=== PATIENT | male | born 1935 | race Caucasian/White ===

== ENCOUNTER 2017-03-19 07:26 | Day surgery (SDC) | payer MEDICARE, BC ==
[~2017-03-19] VITALS: Ht 180.3 cm; Wt 81.0 kg
[~2017-03-19 07:26] MED LIST: Amitriptyline H10 MG PO; METO25ER; WARF3; [UNRECOGNIZED DRUG - REMARK]
[2017-10-16] MEDS ORDERED: METO100ER PO (11:20)
[2017-10-16] MEDS ORDERED: WARF3 PO (11:21)
[2017-10-16] MEDS ORDERED: CALCA400CH (11:22)
[2017-10-16] MEDS ORDERED: WARF4 PO (11:22)
[2017-10-16] MEDS ORDERED: Vitamin D400 UNI2 PO (11:24)
[2017-11-24] MEDS ORDERED: DOXY100 PO (01:03)
== END 2017-03-19 10:05 | disposition home or self-care (01) ==
LOC: ORSCSDS 07:26
PROVIDERS: Internal Medicine Gastroenterology
PROC: 0DBL8ZX Excision of Transverse Colon, Via Natural or Artificial Opening Endoscopic, Diagnostic (ICD-10-PCS; principal; 2017-03-19 08:45)
PROC: 0DBH8ZX Excision of Cecum, Via Natural or Artificial Opening Endoscopic, Diagnostic (ICD-10-PCS; principal; 2017-03-19 08:45)
DX: Z86.010 Personal history of colon polyps (principal); D12.0 Benign neoplasm of cecum; D12.3 Benign neoplasm of transverse colon; K64.8 Other hemorrhoids; I10 Essential (primary) hypertension; I48.91 Unspecified atrial fibrillation; Z79.01 Long term (current) use of anticoagulants; Z79.899 Other long term (current) drug therapy; Z87.891 Personal history of nicotine dependence
CPT/HCPCS: 88305

== ENCOUNTER → 2017-03-27 | Outpatient (CLI) | payer MEDICARE, BC ==
[~2017-03-27] MED LIST changes: +CALCA400CH; +DOXY100 PO; +METO100ER PO; +Vitamin D400 UNI2 PO; +WARF3 PO; +WARF4 PO
== END | disposition home or self-care (01) ==
LOC: LAB SHORT 10:06 → PLD 10:06
DX: D22.61 Melanocytic nevi of right upper limb, including shoulder (principal)
CPT/HCPCS: 88305

== ENCOUNTER → 2017-09-04 | Outpatient (CLI) | payer MEDICARE, BC ==
[~2017-09-04] MED LIST changes: -CALCA400CH; -DOXY100 PO; -METO100ER PO; -Vitamin D400 UNI2 PO; -WARF3 PO; -WARF4 PO
== END ==
LOC: PLD 11:07 → LAB SHORT 11:07
DX: C44.622 Squamous cell carcinoma of skin of right upper limb, including shoulder (principal)
CPT/HCPCS: 88305

== ENCOUNTER 2017-10-22 06:44 | Day surgery (SDC) | payer MEDICARE, BC ==
[~2017-10-22] VITALS: Ht 180.3 cm; Wt 81.1 kg
[~2017-10-22 06:44] MED LIST changes: +CALCA400CH; +METO100ER PO; +Vitamin D400 UNI2 PO; +WARF3 PO; +WARF4 PO
== END 2017-10-22 09:03 | disposition home or self-care (01) ==
LOC: ORSCSDS 06:44
PROVIDERS: Internal Medicine Gastroenterology
PROC: 0DJD8ZZ Inspection of Lower Intestinal Tract, Via Natural or Artificial Opening Endoscopic (ICD-10-PCS; principal; 2017-10-22 08:00)
DX: Z12.11 Encounter for screening for malignant neoplasm of colon (principal); Z86.010 Personal history of colon polyps; K64.8 Other hemorrhoids; I48.91 Unspecified atrial fibrillation; I10 Essential (primary) hypertension; Z87.891 Personal history of nicotine dependence; Z79.01 Long term (current) use of anticoagulants; Z79.899 Other long term (current) drug therapy
CPT/HCPCS: J0330; J1980; J2405; J7120

== ENCOUNTER 2019-05-20 06:35 | Day surgery (SDC) | payer MEDICARE, BC ==
[~2019-05-20] VITALS: Ht 180.3 cm; Wt 84.4 kg
[~2019-05-20 06:35] MED LIST changes: +DOXY100 PO
--- NOTE | 2019-05-20 07:11 | NUR ---
05/20/19 0711 Kelly Naylor N 1 IV ATTEMPT LEFT FA BY [place]. 1 IV ATTEMPT LEFT FA BY KIMANI. SUCCESSFUL IV PLACED IN RIGHT WRIST BY KIMANI.
== END 2019-05-20 08:34 | disposition home or self-care (01) ==
LOC: ORSCSDS 06:35
PROVIDERS: Ophthalmology
PROC: 08RJ3JZ Replacement of Right Lens with Synthetic Substitute, Percutaneous Approach (ICD-10-PCS; principal; 2019-05-20 08:00)
DX: H25.11 Age-related nuclear cataract, right eye (principal); I10 Essential (primary) hypertension; Z79.899 Other long term (current) drug therapy
CPT/HCPCS: J2001; J2250; J3010; J3301; J7040; V2632

== ENCOUNTER → 2020-09-26 | Outpatient (CLI) | payer MEDICARE, BC | END | disposition home or self-care (01) | LOC: LAB 15:24 → LAB SHORT 15:24 | DX: D48.5 Neoplasm of uncertain behavior of skin (principal) | CPT/HCPCS: 88305 ==

== ENCOUNTER 2021-11-03 00:16 | Day surgery (SDC) | payer MEDICARE, BC | END 2021-11-03 09:31 | disposition home or self-care (01) | LOC: ATC 00:16 | DX: I95.1 Orthostatic hypotension (principal); I11.0 Hypertensive heart disease with heart failure; I50.21 Acute systolic (congestive) heart failure; J44.9 Chronic obstructive pulmonary disease, unspecified; I48.91 Unspecified atrial fibrillation; F17.210 Nicotine dependence, cigarettes, uncomplicated; Z79.01 Long term (current) use of anticoagulants; Z79.899 Other long term (current) drug therapy; Z86.73 Personal history of transient ischemic attack (TIA), and cerebral infarction without residual deficits | CPT/HCPCS: 80400; 82533; 96374; J0834 ==

== ENCOUNTER → 2022-09-27 | Outpatient (CLI) | payer MEDICARE, BC ==
[2022-09-27 12:10] LABS: International Normalized Ratio 1.98
[2022-09-27 13:15] LABS: Bun/Creatinine Ratio 24.1 (12.0-20.0); Calcium, Blood 9.6 mg/dL (8.5-10.1); Creatinine, Blood 1.33 mg/dL (0.60-1.20)
== END | disposition home or self-care (01) ==
LOC: LAB 09:20 → LAB SHORT 09:20
PROVIDERS: Internal Medicine
DX: Z79.01 Long term (current) use of anticoagulants (principal); Z51.81 Encounter for therapeutic drug level monitoring; I13.0 Hypertensive heart and chronic kidney disease with heart failure and stage 1 through stage 4 chronic kidney disease, or unspecified chronic kidney disease; I50.23 Acute on chronic systolic (congestive) heart failure; N18.9 Chronic kidney disease, unspecified; I48.91 Unspecified atrial fibrillation; R60.1 Generalized edema
CPT/HCPCS: 80048; 83880; 85610

== ENCOUNTER 2023-10-07 11:33 | Emergency (ER) | payer MEDICARE, BC ==
[~2023-10-07] VITALS: Ht 210.8 cm; Wt 70.3 kg
[~2023-10-07 11:33] MED LIST changes: +1/2 NS 250ml250 ML; +ELIQUIS5 M3 PO; +FLUTICASONE-SA1 EAC9 INH; +K-TAB ER20 ME1 PO; +METO2.5 PO; +PRESERVISION A1 EAC2 PO; +SOAANZ20 M3 PO; +SPIRONOLACTONE25 MG PO; +VITAMIN D31000 UNI1 PO
[2023-10-07 11:49] VITALS: BP 137/83
[2023-10-07] MEDS ORDERED: NS 500 ML IV SCH (11:55)
[2023-10-07 11:57] LABS: BASOPHILS ABSOLUTE AUTO 0.03 K/mm3 (0.00-0.23); BASOPHILS PERCENT AUTO 0 % (0-2); EOSINOPHILS ABSOLUTE AUTO 0.04 K/mm3 (0.00-0.68); EOSINOPHILS PERCENT AUTO 1 % (0-6); Hematocrit 29.7 % (37.0-53.0); Hemoglobin 9.9 g/dL (13.5-17.5); IMMATURE GRAN ABSOLUTE AUTO 0.03 K/mm3 (0.00-0.10); IMMATURE GRAN PERCENT AUTO 0 % (0-1); LYMPHOCYTES ABSOLUTE AUTO 0.49 K/mm3 (0.84-5.20); LYMPHOCYTES PERCENT AUTO 6 % (21-46); MONOCYTES PERCENT AUTO 6 % (4-13); Mean Corpuscular HGB 29.4 pg (26.0-34.0); Mean Corpuscular HGB Conc 33.3 g/dL (31.5-36.5); Mean Corpuscular Volume 88 fL (80-100); Mean Platelet Volume 9.9 fL (9.1-12.4); NEUTROPHILS ABSOLUTE AUTO 6.79 K/mm3 (1.96-9.15); NEUTROPHILS PERCENT AUTO 86 % (41-73); Platelet Count 261 K/mm3 (150-400); RDW Coefficient Variation 14.6 % (11.7-14.2); RDW Standard Deviation 47.2 fL (35.1-46.3); Red Blood Cell Count 3.37 M/mm3 (4.30-5.90); White Blood Cell Count 7.88 K/mm3 (4.00-11.30)
[2023-10-07 12:14] LABS: Albumin, Blood 3.1 g/dL (3.4-5.0); Albumin/Globulin Ratio 0.6 (0.8-1.8); Bilirubin, Total 2.1 mg/dL (0.1-1.0); Bun/Creatinine Ratio 22.8 (12.0-20.0); Calcium, Blood 8.6 mg/dL (8.5-10.1); Creatinine, Blood 0.92 mg/dL (0.60-1.20); Globulin, Blood 4.9 g/dL (2.2-4.0); Potassium, Blood 4.2 mmol/L (3.5-5.5)
[2023-10-07 12:48] LABS: Source, Urine Clean Catch
[2023-10-07 12:48] LABS: BASOPHILS PERCENT MAN 0 % (0-2); EOSINOPHILS PERCENT MAN 0 % (0-6); LYMPHOCYTES ABSOLUTE MAN 0.15 K/mm3 (0.84-5.20); LYMPHOCYTES PERCENT MAN 2 % (21-46); MONOCYTES ABSOLUTE MAN 0.31 K/mm3 (0.16-1.47); MONOCYTES PERCENT MAN 4 % (4-13); SEG NEUTROPHILS PERCENT MAN 94 % (41-73); TOTAL CELLS COUNTED 100
[2023-10-07 12:53] LABS: Appearance, Urine Clear (Clear); Bilirubin, Urine Neg (Neg); Blood, Urine 1+ (Neg); Color, Urine Yellow (P-Yellow); Glucose Qualitative, Urine Neg (Neg); Ketones, Urine Neg (Neg); Leukocyte Esterase, Urine Neg (Neg); Nitrite, Urine Neg (Neg); Protein, Urine 1+ (Neg); Specific Gravity, Urine 1.015 (1.003-1.022); Urobilinogen, Urine 4+ (Normal)
[2023-10-07 13:10] LABS: Bacteria Not Seen /hpf; Squamous Epithelial Cells Not Seen /hpf (Few); White Blood Cells, Urine Not Seen /hpf (0-5)
[2023-10-07] MEDS ORDERED: Docusate Sodium/Senna 1 Tab PO ONE (13:10)
[2023-10-07] MEDS ORDERED: Polyethylene Glycol 3350 17 gm PO ONE (13:10)
[2023-10-07] MEDS ORDERED: Glycerin Adult Supp 1 EA PR ONE (13:10)
[2023-10-07] MEDS ORDERED: Water 500ML With 1 PKT Castile Soap Enema PR ONE (15:25)
== END 2023-10-07 16:59 | disposition home or self-care (01) ==
LOC: ER 11:33
PROVIDERS: Emergency Medicine
DX: K59.00 Constipation, unspecified (principal); R10.30 Lower abdominal pain, unspecified; R16.0 Hepatomegaly, not elsewhere classified; R33.9 Retention of urine, unspecified; I10 Essential (primary) hypertension; I48.91 Unspecified atrial fibrillation; Z79.01 Long term (current) use of anticoagulants; Z79.899 Other long term (current) drug therapy; Z87.891 Personal history of nicotine dependence
CPT/HCPCS: 51701; 51798; 74177; 80053; 81001; 82105; 85025; 96360-59; 99284-25; A9270; J7030; Q9967